=== PATIENT | female | born 1995 | race Hispanic/Latino ===

== ENCOUNTER 2020-02-13 15:10 | Emergency (ER) | payer SELFPAY ==
[2020-02-13 16:36] LABS: #Basophils 0.1 thou/uL (0.0-0.2); #Lymphocytes 1.8 thou/uL (1.20-3.40); #Monocytes 0.6 thou/uL (0.11-0.59); #Neutrophils 10.2 thou/uL (1.40-6.50); %Basophils 0.5 % (0.0-1.0); %Eosinophils 0.4 % (0.0-10.0); %Lymphocytes 14.3 % (21.0-51.0); %Monocytes 4.3 % (0.0-10.0); %Neutrophils 80.6 % (42.0-75.0); Hemoglobin 14.7 g/dL (12.0-16.0); Mean Corpuscular Hemoglobin 28.7 pg (27.0-31.0); Mean Corpuscular Volume 84.2 fL (78.0-98.0); Mean Platelet Volume 7.9 fL (7.4-10.4); Platelet Count 320 thou/uL (130-400); Red Blood Cell (RBC) Count 5.12 mill/uL (4.20-5.40); White Blood Cell (WBC) Count 12.7 thou/uL (4.8-10.8)
[2020-02-13 17:49] LABS: Bacteria/HPF None Seen HPF (None Seen); Bilirubin Negative (Negative); Blood, Urine 3+ (Negative); Clarity Turbid (Clear); Glucose, Urine (Dipstick) Normal (Negative); Ketone, Urine 80 mg/dL (Negative); Leukocyte 25 Leu/uL (Negative); Mucous/LPF 2+ LPF (<2+); Nitrite Negative (Negative); Pregnancy Test - Urine (BHCG) POSITIVE (Negative); Pregu Control Background? CLEAR/WHITE (CLR/WHITE); Pregu Control Bar Appear? YES (CONTROL BAR); Protein, Urine (Dipstick) 50 mg/dL (Neg-Trace); RBC/HPF Greater than 50 HPF (0-3); Specific Gravity, Urine 1.034 (1.002-1.036); Urobilinogen Normal mg/dL (Less than 2)
[2020-02-13 17:50] LABS: Specific Gravity 1.034 (1.002-1.036)
--- NOTE | 2020-02-13 19:25 | ULT ---
PELVIC ULTRASOUND: 02/13/20 COMPARISON: None. HISTORY: Vaginal bleeding for two weeks with increase in blood clots this past week. TECHNIQUE: Multiplanar linder scale and color Doppler images were obtained in a transabdominal and transvaginal pe ic ultrasound. Spectral analysis of the Doppler waveforms of the ovaries were performed. IMPRESSION: Uterus is retroflexed. No intrauterine is seen. There is a thickened endometrial stripe coni suring 1.5 cm in size. No uterine masses are seen. The right ovary is normal in size and appearance and demonstrates normal internal flow. The left ovar y also demonstrates normal internal flow. In the left adnexal region there is an isoechoic solid appe aring mass-like structure measuring 3.5 x 2.1 x 2.1 cm in size. This may have a small amount of inter nal flow. No gestational sac is seen in this location and this could potentially represent a corpus l uteum cyst. A trace amount of free fluid is seen in the pelvis. IMPRESSION: 1. No evidence of intrauterine . 2. Mass-like region in the left adnexa could represent a corpus luteum cyst. POS: EAA
[2020-02-14 19:30] LABS: Chlamydia by PCR Not Detected (NotDetected); GC by PCR Not Detected (NotDetected)
== END 2020-02-13 20:22 | disposition home or self-care (01) ==
LOC: ERS 15:10
DX: N93.9 Abnormal uterine and vaginal bleeding, unspecified (principal)
CPT/HCPCS: 36415; 76856; 81003; 81015; 81025; 84702; 85025; 86900; 86901; 87480; 87491; 87510; 87591; 87660

== ENCOUNTER 2020-02-16 15:29 | Emergency (ER) | payer SELFPAY | END 2020-02-16 15:47 | disposition left against medical advice (07) | LOC: ERS 15:29 | DX: Z53.21 Procedure and treatment not carried out due to patient leaving prior to being seen by health care provider (principal) ==

== ENCOUNTER 2020-02-16 17:07 | Emergency (ER) | payer SELFPAY | END 2020-02-16 18:35 | disposition home or self-care (01) | LOC: ERS 17:07 | DX: O03.9 Complete or unspecified spontaneous abortion without complication (principal) | CPT/HCPCS: 36415; 84702; 99284 ==